=== PATIENT | female | born 1980 | race Caucasian/White ===

== ENCOUNTER 2024-05-06 15:22 | Inpatient (IN) | payer OTHER, SELFPAY ==
[2024-05-06] VITALS (8 sets, daily range): BP systolic 88–109; BP diastolic 41–76; BMI 21.5; BMI 22.3
[2024-05-06 11:49] LABS: Urine Albumin Trace (Neg - Trace); Urine Bilirubin Negative (Negative); Urine Character Clear (Clear); Urine Color Yellow; Urine Glucose Negative (Negative); Urine Ketone Negative (Negative); Urine Leukocyte Negative (Negative); Urine Nitrite Negative (Negative); Urine Occult Blood 4+ (Negative); Urine Urobilinogen Negative (Neg - 1+)
[2024-05-06 11:57] LABS: Urine Mucus Many; Urine Squamous Cell >30 /LPF (Few)
[2024-05-06 11:58] LABS: % Basophils 0.3 % (0-2); % Eosinophils 1.2 % (0-6); % Immature Granulocytes 0.2 % (0-0.5); % Monocytes 8.3 % (1.7-9.3); Absolute Eosinophils 0.1 10^3/uL (0-0.7); Absolute Lymphocytes 2.6 10^3/uL (1.2-3.4); Absolute Monocytes 0.5 10^3/uL (0.1-0.6); Absolute Neutrophils 3.3 10^3/uL (1.4-6.5); Hematocrit 34.8 % (37.0-47.0); Hemoglobin 12.1 g/dL (12.0-16.0); Mean Corp Hgb Conc. 34.8 g/dL (33.0-37.0); Mean Corpuscular Hgb 29.5 pg (27.0-31.0); Mean Corpuscular Volume 84.9 fL (81.0-99.0); Mean Platelet Volume 11.3 fL (7.4-10.4); Nucleated Red Blood Cells % 0 %; Platelet Count 198 10^3/uL (130-400); Red Cell Dist. Width 12.7 % (11.5-14.5); White Blood Cell Count 6.5 10^3/uL (4.8-10.8)
[2024-05-06 11:59] LABS: Urine Red Blood Cell 21-25 /HPF (0-2)
[2024-05-06 12:00] LABS: ALT (SGPT) 13 U/L (0-35); AST (SGOT) 21 U/L (14-36); Albumin 4.3 g/dl (3.5-5.0); Alkaline Phosphatase 42 U/L (38-126); Blood Urea Nitrogen 9 mg/dl (7-17); Calcium 9.5 mg/dl (8.4-10.2); Carbon Dioxide 28 mmol/L (22-30); Chloride 102 mmol/L (98-107); Estimated Creatinine Clearance 85 ml/min; Glucose 118 mg/dl (70-99); Lipase 53 U/L (23-300); Potassium 3.7 mmol/L (3.5-5.1); Sodium 137 mmol/L (135-145); Total Bilirubin 0.5 mg/dl (0.2-1.3); Total Protein 6.8 g/dl (6.3-8.2); Urine Bacteria Moderate (Negative); eGFR > 60.00
[2024-05-06] MEDS: ZOFRAN 4 MG IV ×3 (12:29→23:44)
[2024-05-06] MEDS: DILAUDID 0.5 MG IV ×3 (12:29→23:37)
[2024-05-06] MEDS: NSS 1000 IV ×4 (12:29→23:30)
[2024-05-06] MEDS: TORADOL 30 MG IV (12:29)
--- NOTE | 2024-05-06 12:31 | ED.GENMED ---
History of Present Illness
General
Chief Complaint: Flank Pain
Source: patient
Exam Limitations: none
Time Seen by Provider: 05/06/24 12:12
Nursing documentation reviewed up to this point in time: agreed with
History of Present Illness
History of Present Illness:
24-year-old female presents acute onset of left flank pain onset about an hour prior to arrival history of kidney stones this is similar but more severe recently diagnosed with COVID had an urgent care had some mild cough and fever that time she
apparently had some blood in her urine thought it was due to her menstrual cycle, she did vomit x 1, has some cramps in her lower abdomen
Past History
Past History
ED Past Medical History: Other (Kidney stone currently with COVID)
Social History
Tobacco: Non-smoker
Alcohol: None
Drug: None
Personal:
Living: with family
Employment: Employed
Phy Exam
Physical Exam
Physical Exam:
Physical Exam
General: 44-year-old female writhing in pain
Neck: No jaundice
Heart: Regular
Lungs: no acute respiratory distress.
Abdomen: Tender in the left CVA mild tenderness in the left lower abdomen
Neuro: alert and oriented. no focal neurological deficits
Skin: no rash
Psychiatric: well kept. interactive and cooperative
Extremities: no edema.
Course
Orders/Labs/Results
Orders:
Orders
05/06/24 11:40
Complete Blood Count/With Diff Urgent
Comprehensive Metabolic Panel Urgent
HCG, Serum Qualitative Screen Urgent
Comment: ADD ON
Lipase Urgent
Urinalysis Reflex To Culture Urgent
Date Specimen was Collected: 05/06/24
Time Specimen was Collected: 11:36
Urine Microscopic Reflex Cult Urgent
Urine Culture Urgent
JACQUELINE Source: U
Specimen Description:
Date Specimen was Collected: 05/06/24
Time Specimen was Collected: 11:36
05/06/24 12:23
CT Abd/pel Without Iv Or Oral Urgent
Comment:
Reason For Exam: L flank pain
IV Insert/Care/Rem.- Treatment PRN
0.9% Sodium Chloride 1000 ml [Nss] 1,000 ml IV BOLUS
HYDROmorphone [Dilaudid] 0.5 mg IV NOW STA
Ondansetron Injectable [Zofran] 4 mg IV NOW STA
Test Result ONCE
05/06/24 12:24
Ketorolac [Toradol] 30 mg IV NOW STA
05/06/24 12:38
Add On- LAB Urgent
Tests Added?: HCG serum qualitative
05/06/24 13:25
0.9% Sodium Chloride 1000 ml [Nss] 1,000 ml IV BOLUS
05/06/24 14:33
HYDROmorphone [Dilaudid] 0.5 mg IV NOW STA
Ondansetron Injectable [Zofran] 4 mg IV NOW STA
05/06/24 14:40
Lactic Acid Q4H
Comment: CANCEL 2nd LACTIC ACID IF 1st LACTIC ACID IS LESS THAN 2
Blood Culture Q30M
JACQUELINE Source: Blood/Venous
Specimen Description:
Blood Culture Q30M
JACQUELINE Source: Blood/Venous
Specimen Description:
05/06/24 14:42
COVID-19 Antigen Urgent
Source: Nasal Swab
CefTRIAXone [Rocephin] 1,000 mg IV NOW STA
05/06/24 15:12
Admit/Transfer Patient As Directed
Co-Sign Provider:
Level of Care: Inpatient admission
Assign to:: Medical/Surgical
Physician / Group: mary stack
Diagnosis: Renal colic with left hydronephrosis, recent COVID
Reason for Hospitalization: Renal colic, recent COVID
Expected length of stay greater than two midnights?: Yes
ELOS- Estimated Length of Stay in days: 3
I certify the patient meets the requirements for IP care: Yes
Strain Urine As Directed
05/06/24 15:14
Code Status As Directed
Resuscitation Status: Full Code
05/06/24 15:15
0.9% Sodium Chloride 1000 ml [Nss] 1,000 ml IV 120 mls/hr
05/06/24 15:18
UROLOGY CONSULT Routine
Consulting Provider: Paresh Segal
Was physician already notified: Yes
05/06/24 15:20
EKG [Electrocardiogram (*1)] Urgent
Reason for Study: QTc Monitoring
Ondansetron Injectable [Zofran] 4 mg IV Q6HPRN PRN
05/06/24 16:00
Flush (0.9% Sodium Chloride) [Flush (Nss)] See Dose Instructions IV PER PROTOCOL
05/06/24 18:45
Lactic Acid Q4H
Comment: CANCEL 2nd LACTIC ACID IF 1st LACTIC ACID IS LESS THAN 2
05/07/24 14:00
CefTRIAXone [Rocephin] 1,000 mg IV Q24H
Sterile Water [Sterile Water For Injection] 10 ml IV Q24H
Abnormal Lab Results
05/06/24
11:40
RBC 4.10 L 10^6/uL
(4.20-5.40)
Hct 34.8 L %
(37.0-47.0)
MPV 11.3 H fL
(7.4-10.4)
Glucose 118 H mg/dl
(70-99)
Ur Occult Blood Reflex 4+ A
(Negative)
Urine RBC 21-25 A /HPF
(0-2)
Urine Bacteria (Reflex) Moderate A
(Negative)
05/06/24 11:40
05/06/24 11:40
Vital Signs
Initial and Last Documented VS:
Initial Vital Signs
Pulse Resp Pulse Ox
76 16 98
05/06/24 11:31 05/06/24 11:31 05/06/24 11:31
Last Documented Vital Signs
Pulse Resp BP Pulse Ox
69 17 88/46 98
05/06/24 14:45 05/06/24 14:45 05/06/24 13:00 05/06/24 14:45
MDM/Problems Addressed
Differential Diagnosis Includes:
Renal colic, UTI muscle strain doubt AAA doubt PE
MDM/Problems Addressed:
Left flank pain
Chronic conditions affecting care:
Kidney stone
*Critical Care Note
Total Time (30-74mins, 75-104mins- exclusive of procedures): 31
Update Note
Update Note:
Update patient appears comfortable blood pressure noted normal mental status usually runs low will give her second liter saline
Update 2:15 PM labs noted urine noted culture pending CT scan report noted fits clinically
ED Attending Note
-
Portions of this chart may have been created with voice recognition software.� Occasional wrong word or��sound alike� substitutions may have occurred due to the inherent limitations of voice recognition software.
Discharge Plan
Departure
Patient Disposition: Admit
Date of Disposition: 05/06/24
Time of Disposition: 14:58
Admit to: IMU
Presentation/result/management discussed w/ accepting MD/DO: Hospitalist
Patient with high blood pressure during this ER visit?: No
Condition: Good
Discharge Problem:
Renal colic
Instructions: Kidney Stones (DC), BLOOD PRESSURE
Prescriptions:
No Action
sodium chloride 5 % ointment
1 applic BOTH EYES HS
Visbiome 112.5 billion cell Capsule
1 cap PO QPM
Referrals:
NONE,* [Family Provider] -
Interventions
Interventions:
*Risk Screen - Suicide Last Done: 05/06/24 11:31
*General Assessment Last Done: 05/06/24 12:23
*Neglect/Abuse Screening Last Done: 05/06/24 11:31
ED- Fall Risk Assessment Last Done: 05/06/24 12:35
*ED COVID-19 Vaccine History Last Done: 05/06/24 12:23
TG-Qyagcp-Ylxtcoqeme Assessment Last Done: 05/06/24 12:35
ED-Female Genitourinary Assessment Last Done: 05/06/24 12:35
Discharge Date and Time
Print Language: [place]
[2024-05-06 13:31] LABS: HCG, Serum Qualitative Screen Negative
[2024-05-06] MEDS: ROCEPHIN 1000 MG IV (14:54)
--- NOTE | 2024-05-06 15:16 | HPS.HSE ---
Family Physician
-
Family Physician: * NONE
Chief Complaint
-
Left flank pain
History of Present Illness
44-year-old female with history of nephrolithiasis, recent COVID came to the hospital with left-sided flank pain along with nausea and vomiting. Per patient she also had some chills before coming to the hospital. Patient had mild cough and fever
last week which prompted her to go to the urgent care where she was diagnosed with COVID. Earlier today she started developing left-sided flank pain which prompted her to come to the ED for evaluation. CT scan consistent with left-sided stone with
mild hydronephrosis. Patient at this time denies any nausea. Denies any shortness of breath.
Medical History
Past Medical History
Past Medical History: Reports Other (Nephrolithiasis)
Past Surgical History: Reports None
Social History
Tobacco: Non-smoker
Alcohol: None
Drug: None
Family History
Family History: Not pertinent
Allergies / Home Medications
Allergies reflects when Allergies were last updated in [employer].
Home Medications with original date entered in [employer]
Allergy/Medication List:
Allergies
Allergy/AdvReac Type Severity Reaction Status Date / Time
No Known Allergies Allergy Unverified 05/06/24 11:31
Home Medications
Lactobac no.2-Bifidobac no.1-S. thermo 112.5 billion cell capsule (Visbiome) 1 cap PO QPM 05/06/24
sodium chloride 5 % eye ointment 1 applic BOTH EYES HS 05/06/24
Review of Systems
-
History Source: Patient
A 12 point ROS was completed and negative except as noted: Yes
: Reports Flank Pain
Physical Exam
Vital Signs
Vital Signs
Pulse Resp BP Pulse Ox
69 17 88/46 98
05/06/24 14:45 05/06/24 14:45 05/06/24 13:00 05/06/24 14:45
Physical Exam
General: Well Nourished and No Apparent Distress
HEENT: Anicteric and Moist mucous membranes
Respiratory: Clear; No Wheezes
Cardiac: S1/S2 and Regular Rhythm
Breast: Deferred by me
GI: Soft, Non Tender and Non Distended
Rectal: Deferred by Provider
Genito-urinary: Other (left flank pain)
Neuro: Awake, Alert, Oriented and AO x 3
Psych: Calm and Intact Judgment/Insight
Laboratory Results
-
05/06/24 11:40
05/06/24 11:40
Laboratory Results
Total Bilirubin 0.5 mg/dl (0.2-1.3) 05/06/24 11:40
AST 21 U/L (14-36) 05/06/24 11:40
ALT 13 U/L (0-35) 05/06/24 11:40
Alkaline Phosphatase 42 U/L (38-126) 05/06/24 11:40
Lipase 53 U/L (23-300) 05/06/24 11:40
Data Reviewed
-
CT Scan: Report Reviewed by me, Discussed with Patient and Discussed with Family
Lab Data: Labs Reviewed by me and Discussed with Patient
Impression/Plan
-
Renal colic
Ua noted; abx given in ED; ok for CFTX for now but would dc if remains afebrile and no signs of sepsis
bcx drawn in ED
does report chills
CT noted with 3 mm stone with mild hydro. Urology consulted
N.p.o., fluids
Ekg for Qtc; cw zofran, pain control
strain urine; hopefully passes stone on her own
hx of kidney stones
Hypotension
cw agressive fluid resuscitation, per patient she always runs low
Continue monitor blood pressure
Recent COVID; symptoms started 04/30; covid + urgent care
covid checked again by ED
DVT prophylaxis
SCDs
Full code
[2024-05-06 15:54] LABS: COVID-19 Antigen Positive (Negative)
--- NOTE | 2024-05-06 17:30 | PTCARENOTE ---
Received patient from ED. Patient is here with left-sided kidney stone, + COVID (tested positive last week).
Assessment documented and completed in shift assessment. Patient nauseous and vomiting on arrival. Awaiting medication intervention from hospitalist.
[2024-05-06] MEDS: VISBIOME PO (17:56)
--- NOTE | 2024-05-06 18:06 | W.PN.URO.CBU ---
Today's Communication / Plan
-
npo call urology if fevr over 101.5 or pt getting worse strain all urine
Assessment / Plan
-
passablestone but did have chills no fever u/a bland pt non toxic observe over eveing if febroel then to op room f sa-=table home in am for tria od stone passage
Diagnosis
-
Date of Service: May 06, 2024
-
Patient Diagnosis:10 hous left colic and llq pain chills er=yolis no fevr ct scan 3 mm os smaller distal left stone n=min hydro some nausea
Post Op Day:
Subjective
-
feeling better min christiano some nausea
Objective
-
Vital Signs
Temp Pulse Resp BP Pulse Ox
98.4 F 61 16 109/60 97
05/06/24 17:03 05/06/24 17:03 05/06/24 17:03 05/06/24 17:03 05/06/24 17:03
Intake and Output
05/05/24 05/06/24 05/07/24
06:59 06:59 06:59
Intake Total 480 / 480
Balance 480 / 480
Intake:
Oral fluids 480 / 480
Laboratory Results
05/06/24 11:40
05/06/24 11:40
Review of Systems
-
Abdomen/GI: Nausea
: Flank Pain
Physical Exam
-
General - well developed, well nourished, no acute distress non toxic
Chest - clear bilaterally
Abdomen - soft, non-tender, positive bowel sounds, no CVAT, no incisional pain or distention
Genitalia - normal
Rectal - normal
Skin - warm & dry with no rash
Neuro - AOx3, no motor deficits
Extremities - no clubbing, no cyanosis, no edema
Incision - clean, dry
Dressing - clean, dry, intact
Care Review
Data Reviewed
Discussed with: Hospitalist and Nursing
CT Scan: Image Pers Reviewed
[2024-05-06] MEDS: COMPAZINE 5 MG IV (18:28)
[2024-05-06] MEDS: MURO 5% OPHTHALMIC OINTMENT 1 APPLIC BOTH EYES (20:43)
[2024-05-07] MEDS: DILAUDID 0.5 MG IV (03:33)
[2024-05-07] MEDS: COMPAZINE 5 MG IV (03:38)
[2024-05-07 07:02] LABS: % Basophils 0.1 % (0-2); % Immature Granulocytes 0.5 % (0-0.5); % Neutrophils 79.4 % (42.2-75.2); Absolute Immature Granulocytes 0.1 10^3/uL (0-0.05); Absolute Lymphocytes 1.5 10^3/uL (1.2-3.4); Absolute Monocytes 0.6 10^3/uL (0.1-0.6); Absolute Neutrophils 8.5 10^3/uL (1.4-6.5); Hematocrit 30.4 % (37.0-47.0); Hemoglobin 10.3 g/dL (12.0-16.0); Mean Corp Hgb Conc. 33.9 g/dL (33.0-37.0); Mean Corpuscular Hgb 29.2 pg (27.0-31.0); Mean Corpuscular Volume 86.1 fL (81.0-99.0); Nucleated Red Blood Cells % 0 %; Red Blood Cell Count 3.53 10^6/uL (4.20-5.40); Red Cell Dist. Width 12.9 % (11.5-14.5); White Blood Cell Count 10.7 10^3/uL (4.8-10.8)
[2024-05-07 07:05] VITALS: BP 91/49
[2024-05-07 07:21] LABS: Blood Urea Nitrogen 12 mg/dl (7-17); Calcium 7.6 mg/dl (8.4-10.2); Carbon Dioxide 22 mmol/L (22-30); Chloride 111 mmol/L (98-107); Estimated Creatinine Clearance 85 ml/min; Glucose 77 mg/dl (70-99); Potassium 3.8 mmol/L (3.5-5.1); Sodium 139 mmol/L (135-145); eGFR > 60.00
[2024-05-07] MEDS: NSS 1000 IV ×2 (08:32→17:05)
--- NOTE | 2024-05-07 09:10 | W.PN.HOSP.TC ---
Today's Communication/Plan
-
see A/P
Assessment / Plan
Assessment / Plan
HPI: 44-year-old female with history of nephrolithiasis, recent COVID came to the hospital with left-sided flank pain along with nausea and vomiting. Per patient she also had some chills. Patient had mild cough and fever last week which prompted her
to go to the urgent care where she was diagnosed with COVID.
CT scan consistent with left-sided stone with mild hydronephrosis. Patient at this time denies any nausea. Denies any shortness of breath.
A/P:
# Left Renal colic
# hx of kidney stones
urine culture contaminated
Follow blood cultures
cont ceftriaxone with low threshold to stop
CT noted with 3 mm stone with mild hydro.
Urology consulted
Cont IVF
pain control with Dilaudid PRN
# Hypotension
per patient she always runs low
c/w IVF 120 cc NSS
Continue monitor blood pressure
# Recent COVID; symptoms started 04/30; covid + urgent care
covid again positive on admission 05/06
DVT prophylaxis SCDs
Full code
DW Uro
Anticipated Discharge: 24 - 48 hours
Subjective/Interval History
-
Date of Service: May 07, 2024
Objective Data
-
Labs:
Laboratory Results
05/07/24
06:25
WBC 10.7
Hgb 10.3 L
Hct 30.4 L
Plt Count Pending
Sodium 139
Potassium 3.8
Chloride 111 H
Carbon Dioxide 22
BUN 12
Creatinine 0.6
Glucose 77
Calcium 7.6 L D
Vital Signs:
Vital Signs
Temp Pulse Resp BP Pulse Ox
36.7 C 71 16 91/49 97
05/07/24 07:05 05/07/24 07:05 05/07/24 07:05 05/07/24 07:05 05/07/24 07:05
I&O
05/06/24 05/07/24 05/08/24
06:59 06:59 06:59
Intake Total 1480 / 1480
Output Total 450 / 450
Balance 1030 / 1030
Review of Systems
-
Genitourinary: Reports Flank Pain (left)
Physical Exam
-
General: Well Developed, Well Nourished, No Apparent Distress, Comfortable and Conversant; Negative Respiratory Distress
HEENT: Normocephalic, Atraumatic, Nose Appears Normal and Ears Appear Normal; Negative Oxygen
Respiratory: Clear to Auscultation and Non Labored Respirations; Negative Accessory Resp Muscle Use
Cardiac: Regular Rhythm and S1/S2
GI: Soft, Nontender, Nondistended and Normal Bowel Sounds
Genito-urinary: Other (L flank pain)
Skin: Warm and Dry
Neuro: Awake, Alert, Oriented, AO x 3 and Nonfocal/Grossly Intact
Psych: Calm and Intact Judgement/Insight
Data Reviewed
-
CT Scan: Report Reviewed by me
Labs: Labs Reviewed by me
[2024-05-07 09:31] LABS: Mean Platelet Volume 11.6 fL (7.4-10.4); Platelet Count 149 10^3/uL (130-400)
--- NOTE | 2024-05-07 11:07 | W.PN.URO.CBU ---
Today's Communication / Plan
-
npo post hs try oral pain rxs before pareteral if patient has ain
Assessment / Plan
-
passablestone but did have chills no fever u/a bland pt non toxic observe again trial of asage unless fever chills alos try and transition emma analgesics will renede r npo post hs but if stable will try not to operate
Diagnosis
-
Date of Service: May 07, 2024
-
Patient Diagnosis:
Post Op Day:
Patient Diagnosis:10 hous left colic and llq pain chills er=yolis no fevr ct scan 3 mm os smaller distal left stone n=min hydro some nausea
Post Op Day:
Subjective
-
still colic no fever chlls
Objective
-
Vital Signs
Temp Pulse Resp BP Pulse Ox
98.1 F 71 16 91/49 97
05/07/24 07:05 05/07/24 07:05 05/07/24 07:05 05/07/24 07:05 05/07/24 07:05
Intake and Output
05/06/24 05/07/24 05/08/24
06:59 06:59 06:59
Intake Total 1480 / 1480
Output Total 450 / 450
Balance 1030 / 1030
Intake:
Oral fluids 480 / 480
IV fluids (Total) 1000 / 1000
Output:
Urine, Voided 450 / 450
Laboratory Results
05/07/24 06:25
05/07/24 06:25
Review of Systems
-
: Flank Pain
Physical Exam
-
General - well developed, well nourished, no acute distressnon toxic
Chest - clear bilaterally
Abdomen - soft, non-tender, positive bowel sounds, no CVAT, no incisional pain or distention
Genitalia - normal
Rectal - normal
Skin - warm & dry with no rash
Neuro - AOx3, no motor deficits
Extremities - no clubbing, no cyanosis, no edema
Incision - clean, dry
Dressing - clean, dry, intact
Care Review
Data Reviewed
Discussed with: Hospitalist and Nursing
CT Scan: Image Pers Reviewed
[2024-05-07] MEDS: STERILE WATER FOR INJECTION 10 ML IV (14:57)
[2024-05-07] MEDS: ROCEPHIN 1000 MG IV (14:57)
[2024-05-07 15:00] VITALS: BP 95/50
[2024-05-07] MEDS: VISBIOME 1 CAP PO (17:05)
[2024-05-07] MEDS: MURO 5% OPHTHALMIC OINTMENT 1 APPLIC BOTH EYES (22:08)
[2024-05-07 23:00] VITALS: BP 103/51
[2024-05-08] MEDS: NSS IV (00:24)
[2024-05-08 06:42] LABS: Hematocrit 31.1 % (37.0-47.0); Hemoglobin 10.4 g/dL (12.0-16.0); Mean Corp Hgb Conc. 33.4 g/dL (33.0-37.0); Mean Corpuscular Hgb 29.4 pg (27.0-31.0); Mean Corpuscular Volume 87.9 fL (81.0-99.0); Platelet Count 146 10^3/uL (130-400); Red Blood Cell Count 3.54 10^6/uL (4.20-5.40); Red Cell Dist. Width 12.6 % (11.5-14.5); White Blood Cell Count 5.7 10^3/uL (4.8-10.8)
[2024-05-08 07:00] VITALS: BP 103/45
[2024-05-08 07:10] LABS: Blood Urea Nitrogen 7 mg/dl (7-17); Calcium 8.1 mg/dl (8.4-10.2); Carbon Dioxide 25 mmol/L (22-30); Chloride 109 mmol/L (98-107); Estimated Creatinine Clearance 85 ml/min; Glucose 83 mg/dl (70-99); Potassium 3.8 mmol/L (3.5-5.1); Sodium 137 mmol/L (135-145); eGFR > 60.00
--- NOTE | 2024-05-08 08:06 | W.PN.URO.CBU ---
Today's Communication / Plan
-
may eat d/c pending hospitalist input
Assessment / Plan
-
asx x 36 houres recent blod cs neg suggest dischrg with gama gilbert call if fevr chills f/up 2- 6 weeks
Diagnosis
-
Date of Service: May 08, 2024
-
Patient Diagnosis:
Post Op Day:
Patient Diagnosis:
Post Op Day:
Patient Diagnosis:10 hous left colic and llq pain chills er=yolis no fevr ct scan 3 mm os smaller distal left stone n=min hydro some nausea
Post Op Day:
Subjective
-
asx no [ain x 36 hours
Objective
-
Vital Signs
Temp Pulse Resp BP Pulse Ox
98.8 F 69 16 103/51 96
05/07/24 23:00 05/07/24 23:00 05/07/24 23:00 05/07/24 23:00 05/07/24 23:00
Intake and Output
05/07/24 05/08/24 05/09/24
06:59 06:59 06:59
Intake Total 1480 / 1480 2160 / 2160
Output Total 450 / 450 1150 / 1150
Balance 1030 / 1030 1010 / 1010
Intake:
Oral fluids 480 / 480 2160 / 2160
IV fluids (Total) 1000 / 1000
Output:
Urine, Voided 450 / 450 1150 / 1150
Laboratory Results
05/08/24 06:09
05/08/24 06:09
Review of Systems
-
Abdomen/GI: No Symptoms
: No Symptoms
Physical Exam
-
General - well developed, well nourished, no acute distress
Chest - clear bilaterally
Abdomen - soft, non-tender, positive bowel sounds, no CVAT, no incisional pain or distention
Genitalia - normal
Rectal - normal
Skin - warm & dry with no rash
Neuro - AOx3, no motor deficits
Extremities - no clubbing, no cyanosis, no edema
Incision - clean, dry
Dressing - clean, dry, intact
Care Review
Data Reviewed
Discussed with: Nursing
--- NOTE | 2024-05-08 10:35 | W.PN.HOSP.TC ---
Addendum entered and electronically signed by Latia Phelps MD 05/08/24 13:12:
total DC time 36 min
Original Note:
Today's Communication/Plan
-
DC home today
Assessment / Plan
Assessment / Plan
HPI: 44-year-old female with history of nephrolithiasis, recent COVID came to the hospital with left-sided flank pain along with nausea and vomiting. Per patient she also had some chills. Patient had mild cough and fever last week which prompted her
to go to the urgent care where she was diagnosed with COVID.
CT scan consistent with left-sided stone with mild hydronephrosis. Patient at this time denies any nausea. Denies any shortness of breath.
A/P:
# Left Renal colic, resolved
# hx of kidney stones
urine culture contaminated
blood cultures negative
Stop ceftriaxone (received 2 days during hospital stay)
CT noted with 3 mm stone with mild hydro.
Urology consulted, cleared for DC
pain control with Tylenol outpt
# Hypotension
per patient her BP always runs low
given NSS 120 cc NSS
Continue monitor blood pressure
# Recent COVID; symptoms started 04/30; covid + urgent care
covid again positive on admission 05/06
DVT prophylaxis SCDs
Full code
DW Uro
Anticipated Discharge: Today
Subjective/Interval History
-
Date of Service: May 08, 2024
Objective Data
-
Labs:
Laboratory Results
05/08/24
06:09
WBC 5.7
Hgb 10.4 L
Hct 31.1 L
Plt Count 146
Sodium 137
Potassium 3.8
Chloride 109 H
Carbon Dioxide 25
BUN 7
Creatinine 0.6
Glucose 83
Calcium 8.1 L
Vital Signs:
Vital Signs
Temp Pulse Resp BP Pulse Ox
37.1 C 78 18 103/45 96
05/08/24 07:00 05/08/24 07:00 05/08/24 07:00 05/08/24 07:00 05/08/24 07:00
I&O
05/07/24 05/08/24 05/09/24
06:59 06:59 06:59
Intake Total 1480 / 1480 2160 / 2160
Output Total 450 / 450 1150 / 1150
Balance 1030 / 1030 1010 / 1010
Review of Systems
-
All other systems: Reviewed and negative
Genitourinary: Denies Flank Pain (resolved )
Physical Exam
-
General: Well Developed, Well Nourished, No Apparent Distress, Comfortable and Conversant; Negative Respiratory Distress
HEENT: Normocephalic, Atraumatic, Nose Appears Normal and Ears Appear Normal; Negative Oxygen
Respiratory: Clear to Auscultation and Non Labored Respirations; Negative Accessory Resp Muscle Use
Cardiac: Regular Rhythm and S1/S2
GI: Soft, Nontender, Nondistended and Normal Bowel Sounds
Genito-urinary: Other (L flank pain has resolved )
Skin: Warm and Dry
Neuro: Awake, Alert, Oriented, AO x 3 and Nonfocal/Grossly Intact
Psych: Calm and Intact Judgement/Insight
Data Reviewed
-
CT Scan: Report Reviewed by me
Labs: Labs Reviewed by me
--- NOTE | 2024-05-08 12:38 | W.DCSUMMARY ---
Discharge Summary
Discharge Data
Date of Admission: 05/06/24
Date of Discharge: 05/08/24
-
Pending Results: No
Hospital Course
Principal Diagnosis:
Left renal colic, resolved
Chronic Diagnoses:�
History of left kidney stone
Chronic hypotension
Recent COVID infection; symptoms started 04/30; COVID positive at urgent care
Consultations:�
Urology
Procedures:�
None
Clinical course:�
This is a 44-year-old female with history of nephrolithiasis and recent COVID infection who presented with left flank pain.
Problem 1:
Left Renal colic, resolved.
Her CT scan showed small left-sided stone 3 mm with mild hydronephrosis.
No procedure is required per Uro.
Her urine culture was sent and it was contaminated.
Her blood cultures were negative.
She did receive ceftriaxone x2 days while in the hospital, no further antibiotic was continued after that.
She can continue Tylenol for pain control.
As for the rest of her medical problems, they were stable during her hospital stay.
Discharge Plan
-
Patient Disposition: Home (Routine Discharge)
Discharge Diagnosis/Procedures: resolved left renal colic/ Left flank pain; recent COVID infection
Condition: Good
Diet: As tolerated
Activity: As tolerated
Driving Restrictions: As prior to admission
Referrals:
Paresh Segal MD [Active] - (dr segal [phone] urology call for routine appt 2- 6 weeks but call if sevre pain or fever chills I am pout of town may 11- but there will be a call doctor and if stable il;ll see you befor
jul)
NONE,* [Family Provider] - in less than 1 week
Prescriptions:
Continued
sodium chloride 5 % ointment
1 applic BOTH EYES HS
Visbiome 112.5 billion cell Capsule
1 cap PO QPM
Discharge Orders:
Discharge Patient (As Directed); Ordered 05/08/24
Ordered By: Latia Phelps
Discharge Date and Time
Discharge Date/Time: 05/08/24 11:13
Print Language: [place]
== END 2024-05-08 11:13 | disposition home or self-care (01) | DRG 694 ==
LOC: 3 WEST ACU 15:22
PROVIDERS: Student in an Organized Health Care Education/Training Program; ADMITTING PHYSICIAN Internal Medicine; ATTENDING PHYSICIAN Internal Medicine; CONSULT PHYSICIAN Specialist; EMERGENCY PHYSICIAN Emergency Medicine
DX: N13.2 Hydronephrosis with renal and ureteral calculous obstruction (principal); I95.89 Other hypotension; Z87.442 Personal history of urinary calculi; Z79.899 Other long term (current) drug therapy; Z86.16 Personal history of COVID-19
CPT/HCPCS: 74176; 80048; 80053; 81003; 81015; 83605; 83690; 84703; 85025; 85027; 87040; 87086; 87811; 96361; 96374; 96375; 96376; 99291